=== PATIENT | male | born 1975 | race Caucasian/White ===

== ENCOUNTER 2024-03-13 11:15 | Outpatient (CLI) | payer BC ==
[2024-03-13 13:14] LABS: #Basophils 0.03 10x3/uL (0.0-0.2); %Basophils 0.3 % (0.0-1.0); %Eosinophils 1.3 % (0.0-10.0); %Lymphocytes 33.1 % (21.0-51.0); %Monocytes 8.1 % (0.0-10.0); %Neutrophils 56.8 % (42.0-75.0); Hematocrit 47.5 % (42.0-52.0); Hemoglobin 15.8 g/dL (14.0-18.0); Mean Corpuscular HGB CONC 33.3 g/dL (32.0-36.0); Mean Corpuscular Hemoglobin 31.8 pg (27.0-31.0); Mean Corpuscular Volume 95.6 fL (78.0-98.0); Mean Platelet Volume 10.1 fL (7.4-10.4); Platelet Count 252 10x3/uL (130-400); RBC Distribution Width 12.6 % (11.5-14.5); Red Blood Cell (RBC) Count 4.97 mill/uL (4.70-6.10)
[2024-03-13 13:45] LABS: Anion Gap 13 mmol/L (10-20); BUN (Urea Nitrogen) 13 mg/dL (8.9-20.6); Calc. Creatinine Clearance 0 mL/min (70-130); Calcium 8.9 mg/dL (7.8-10.44); Carbon Dioxide 21 mmol/L (22-29); Chloride 107 mmol/L (98-107); Estimated GFR 90; Glucose 85 mg/dL (70-105); Potassium 4.3 mmol/L (3.5-5.1); Sodium 137 mmol/L (136-145)
== END 2024-03-13 11:16 | disposition home or self-care (01) ==
LOC: LABBT 11:15
PROVIDERS: ATTEND Thoracic Surgery (Cardiothoracic Vascular Surgery)
DX: Z01.818 Encounter for other preprocedural examination (principal); I25.10 Atherosclerotic heart disease of native coronary artery without angina pectoris
CPT/HCPCS: 71046; 80048; 85025; 93005; 93010

== ENCOUNTER 2024-03-13 11:30 | Inpatient (IN) | payer BC ==
[2024-03-16] MEDS ORDERED: Albumin 5% 500 ML ONE (09:38)
[2024-03-16] MEDS ORDERED: Dexamethasone 4 mg/ml Vial ONE (09:38)
[2024-03-16] MEDS ORDERED: Bupivacaine PF 0.5% 30 ML VIAL ONE (09:38)
[2024-03-16] MEDS ORDERED: PHENYLEPHRINE-NS 100 MCG/ML 10 ML SYRINGE ONE (09:38)
[2024-03-16] MEDS ORDERED: EPINEPHrine 1 MG/ML VIAL ONE (09:38)
[2024-03-16] MEDS ORDERED: Heparin 10,000 UNITS/1 ML VIAL 30,000 UNITS in Sodium Chloride 0.9% 1,000 ML FS SCH (09:45)
[2024-03-16] MEDS ORDERED: Lidocaine 1% MPF 2 ML VIAL ONE (10:16)
[2024-03-16] MEDS ORDERED: CEFAZOLIN 2 GM VIAL ONE (10:17)
[2024-03-16] MEDS ORDERED: NOREPINEPHRINE 8 MG/250 ML-D5W 250 ML ONE (10:30)
[2024-03-16] MEDS ORDERED: PROPOFOL 20 ML ONE (10:46)
[2024-03-16] MEDS ORDERED: Lidocaine 2% PF 5 ML VIAL ONE (10:47)
[2024-03-16] MEDS ORDERED: Rocuronium Bromide 10 MG/ML (10ML VIAL) ONE ×3 (10:47→15:32)
[2024-03-16] MEDS ORDERED: Fentanyl 250 MCG/5 ML VIAL ONE ×2 (10:48→11:49)
[2024-03-16] MEDS ORDERED: Midazolam HCl 2 mg/2 ml Vial ONE ×3 (10:58→13:43)
[2024-03-16] MEDS ORDERED: Protamine Sulfate 250 MG/25 ML VIAL ONE (11:48)
[2024-03-16] MEDS ORDERED: Mannitol 12.5 GM/50 ML ONE (11:48)
[2024-03-16] MEDS ORDERED: Papaverine 60 MG/2 ML VIAL ONE (11:48)
[2024-03-16] MEDS ORDERED: Magnesium 5 GM/10 ML VIAL ONE (11:48)
[2024-03-16] MEDS ORDERED: Sodium Bicarb 50 mEq/50 ML VIAL ONE (11:48)
[2024-03-16] MEDS ORDERED: Aminocaproic Acid 5 GM/20 ML VIAL ONE (11:48)
[2024-03-16] MEDS ORDERED: Cardioplegic Soln 1,000 ML BAG ONE (11:48)
[2024-03-16] MEDS ORDERED: Heparin 5,000 UNITS/ML VIAL ONE (11:48)
[2024-03-16] MEDS ORDERED: Heparin 30,000 units/30 ml VIAL ONE (11:48)
[2024-03-16] MEDS ORDERED: Esmolol 100 MG/10 ML VIAL ONE (11:48)
[2024-03-16] MEDS ORDERED: Vancomycin 1 GM VIAL ONE (11:48)
[2024-03-16] MEDS ORDERED: Lidocaine 2% PF 100 mg/5 ml Syringe ONE (11:48)
[2024-03-16] MEDS ORDERED: Calcium Chloride 1 GM/10 ML Abboject SYRINGE ONE (11:48)
[2024-03-16] MEDS ORDERED: Potassium Chloride 60 mEq (30 mL) VIAL ONE (11:48)
[2024-03-16] MEDS ORDERED: Sodium Chloride 0.9% 100 ML ONE (14:22)
[2024-03-16] MEDS ORDERED: Metoprolol Tartrate 5 MG (5 mL) VIAL ONE (14:35)
[2024-03-16] MEDS ORDERED: Albumin 5% 12.5 GM (250 mL) BOT IVPB PRN ×2 (15:30)
[2024-03-16] MEDS ORDERED: traMADol HCl 50 MG TAB PO PRN (15:30)
[2024-03-16] MEDS ORDERED: hydrALAZINE 20 MG/ML VIAL SLOW IVP PRN (15:30)
[2024-03-16] MEDS ORDERED: Potassium Chloride 20 MEQ (100 mL) BAG IVPB PRN (15:30)
[2024-03-16] MEDS ORDERED: NOREPINEPHRINE 8 MG/250 ML-D5W 250 ML IVPB PRN (15:30)
[2024-03-16] MEDS ORDERED: Hetastarch 6% 500 ML 500 ML IVPB PRN (15:30)
[2024-03-16] MEDS ORDERED: fentaNYL 50 mcg/mL 1 mL Vial SLOW IVP PRN (15:30)
[2024-03-16] MEDS ORDERED: Acetaminophen 325 MG TAB PO PRN (15:30)
[2024-03-16] MEDS ORDERED: Mag-Al 1200 mg/1200 mg/30 ML UDCUP PO PRN (15:30)
[2024-03-16] MEDS ORDERED: Guaifenesin DM 100-10/5 ML UDCUP PO PRN (15:30)
[2024-03-16] MEDS ORDERED: Ipratropium/Albuterol 3 ML NEB NEB PRN (15:30)
[2024-03-16] MEDS ORDERED: Bisacodyl 5 MG TAB PO PRN (15:30)
[2024-03-16] MEDS ORDERED: Ondansetron PF 4 MG/2 ML Vial IVP PRN (15:30)
[2024-03-16] MEDS ORDERED: Bisacodyl 10 MG SUPP PR PRN (15:30)
[2024-03-16] MEDS ORDERED: fentaNYL PF 100 MCG/2 ML SYRINGE ONE (15:32)
[2024-03-16] MEDS ORDERED: Dextrose 50% Abboject 50 ML SYRINGE SLOW IVP PRN (15:45)
[2024-03-16] MEDS ORDERED: Glucagon 1 MG/ML KIT SC PRN (15:45)
[2024-03-16] MEDS ORDERED: Dextrose 5% in Water 1,000 ML IV PRN (15:45)
[2024-03-16 15:55] LABS: Actual Bicarbonate (HCO3a) 22.9 mEq/L (22-28); Base Excess (BEa) -4.5 mEq/L (-2.0 to +3.0); Carboxyhemoglobin (COHb) 1.6 gm% (0.0-3.0); Hematocrit-ABG 42 % (42.0-52.0); Hemoglobin (Hb) 14.3 g/dL (14.0-18.0); O2 Tension (PaO2), arterial 115.7 mmHg (80.0-100.0); Potassium - ABG Lab 4.31 mmol/L (3.70-5.30)
[2024-03-16] MEDS: Morphine 2 MG/ML VIAL SLOW IVP PRN (15:55)
[2024-03-16 15:57] LABS: Puncture Site Arterial Line
[2024-03-16] MEDS: Nitroglycerin 50 MG/250 ML BOT 250 ML IVPB PRN (16:00)
[2024-03-16 16:05] LABS: Hemoglobin 13.7 g/dL (14.0-18.0); Mean Corpuscular HGB CONC 33.4 g/dL (32.0-36.0); Mean Corpuscular Hemoglobin 32.8 pg (27.0-31.0); Mean Corpuscular Volume 98.1 fL (78.0-98.0); Mean Platelet Volume 9.5 fL (7.4-10.4); Platelet Count 171 10x3/uL (130-400); RBC Distribution Width 12.9 % (11.5-14.5); Red Blood Cell (RBC) Count 4.18 mill/uL (4.70-6.10)
[2024-03-16] MEDS: D5 1/2 NS w/20 mEq KCL 1,000 ML IV SCH (16:13)
[2024-03-16] MEDS: Magnesium 2 GM/50 ML(in water) 2 GM in Premix 1 BAG IVPB SCH (16:14)
[2024-03-16 16:16] LABS: Anion Gap 10 mmol/L (10-20); BUN (Urea Nitrogen) 11 mg/dL (8.9-20.6); Calc. Creatinine Clearance 182 mL/min (70-130); Calcium 8.1 mg/dL (7.8-10.44); Carbon Dioxide 21 mmol/L (22-29); Chloride 112 mmol/L (98-107); Estimated GFR 109; Glucose 134 mg/dL (70-105); Potassium 4.3 mmol/L (3.5-5.1); Sodium 139 mmol/L (136-145)
[2024-03-16 16:17] LABS: INR-International Normal Ratio 1.2; Prothrombin Time 15.5 sec (12.0-14.7)
[2024-03-16] MEDS: fentaNYL 50 mcg/mL 1 mL Vial SLOW IVP PRN (16:17)
[2024-03-16 16:18] LABS: PTT 29.4 sec (22.9-36.1)
[2024-03-16] MEDS: Insulin Regular, Human 100 UNIT/ML 10 ML VIAL SC PRN (16:19)
[2024-03-16] MEDS: Ketorolac Tromethamine 30 MG (1 mL) VIAL IVP SCH (16:20)
[2024-03-16 16:40] LABS: Band 14 % (5-11); Lymphocytes 8 % (21-51); Macrocytosis SLIGHT = 6-15 cells HPF (0-5); Monocytes 2 % (0-10); Neutrophil 75 % (42-75); Platelet Adequacy Comment Platelets Normal; Reactive Lymphocytes 1 % (0-10)
[2024-03-16] MEDS: CEFAZOLIN 2 GM in Sodium Chloride 0.9% 100 ML IVPB SCH (16:47)
[2024-03-16 18:11] LABS: Base Excess (BEa) -4.8 mEq/L (-2.0 to +3.0); CO2 Tension 36.8 mmHg (35.0-45.0); Calcium, Ionized (arterial) 1.16 mmol/L (1.12-1.30); Carboxyhemoglobin (COHb) 1.2 gm% (0.0-3.0); Hematocrit-ABG 43 % (42.0-52.0); Hemoglobin (Hb) 14.5 g/dL (14.0-18.0); Potassium - ABG Lab 4.73 mmol/L (3.70-5.30); pH, Arterial 7.354 (7.35-7.45)
[2024-03-16 18:12] LABS: Puncture Site Arterial Line
[2024-03-16] MEDS: FLU (Fluarix Triv) TS24-25(6MOS UP)/PF 45 MCG/0.5 ML Syringe IM ONE (19:33)
[2024-03-16] MEDS: Famotidine/PF 20 mg/2ml Vial SLOW IVP SCH (19:35)
[2024-03-16] MEDS: traMADol HCl 50 MG TAB PO PRN (19:36)
[2024-03-16 22:08] LABS: Hematocrit 44.4 % (42.0-52.0); Hemoglobin 14.9 g/dL (14.0-18.0)
[2024-03-16 22:18] LABS: Potassium 5.4 mmol/L (3.5-5.1)
[2024-03-17 04:11] LABS: #Basophils Less than 0.03 10x3/uL (0.0-0.2); #Eosinophils Less than 0.03 10x3/uL (0.0-0.7); %Basophils 0.1 % (0.0-1.0); %Lymphocytes 7.2 % (21.0-51.0); %Monocytes 7.8 % (0.0-10.0); %Neutrophils 84.1 % (42.0-75.0); Hematocrit 39.9 % (42.0-52.0); Hemoglobin 13.3 g/dL (14.0-18.0); Mean Corpuscular HGB CONC 33.3 g/dL (32.0-36.0); Mean Corpuscular Hemoglobin 32.1 pg (27.0-31.0); Mean Corpuscular Volume 96.4 fL (78.0-98.0); Mean Platelet Volume 10.1 fL (7.4-10.4); Platelet Count 174 10x3/uL (130-400); RBC Distribution Width 12.8 % (11.5-14.5); Red Blood Cell (RBC) Count 4.14 mill/uL (4.70-6.10)
[2024-03-17 04:32] LABS: Anion Gap 11 mmol/L (10-20); BUN (Urea Nitrogen) 12 mg/dL (8.9-20.6); Calc. Creatinine Clearance 175 mL/min (70-130); Calcium 7.9 mg/dL (7.8-10.44); Carbon Dioxide 22 mmol/L (22-29); Chloride 107 mmol/L (98-107); Estimated GFR 107; Glucose 170 mg/dL (70-105); Potassium 4.8 mmol/L (3.5-5.1); Sodium 135 mmol/L (136-145)
[2024-03-17] MEDS: HYDROcodone/Acetaminophen 7.5/325 mg Tablet PO PRN ×2 (07:20→12:51)
[2024-03-17] MEDS: Atorvastatin Calcium 40 MG TAB PO SCH (09:58)
[2024-03-17] MEDS: Pantoprazole DR 40 MG TAB PO SCH (09:58)
[2024-03-17] MEDS: Aspirin 325 MG TAB PO SCH (09:58)
[2024-03-17] MEDS: Ezetimibe 10 MG TAB PO SCH (09:58)
[2024-03-17] MEDS: Magnesium 2 GM/50 ML(in water) 2 GM in Premix 1 BAG IVPB SCH (09:59)
[2024-03-17 12:47] LABS: Actual Bicarbonate (HCO3a) 21.1 mEq/L (22-28); Analyzer IN Cardio OR; Base Excess (BEa) -4.9 mEq/L (-2.0 to +3.0); CO2 Tension 42.5 mmHg (35.0-45.0); Calcium, Ionized (arterial) 1.15 mmol/L (1.12-1.30); Hematocrit-ABG 42 % (42.0-52.0); Hemoglobin (Hb) 14.3 g/dL (14.0-18.0); O2 Tension (PaO2), arterial 535.1 mmHg (80.0-100.0); Potassium - ABG Lab 4.37 mmol/L (3.70-5.30); pH, Arterial 7.314 (7.35-7.45)
[2024-03-17 12:47] LABS: Actual Bicarbonate (HCO3a) 21.2 mEq/L (22-28); Analyzer IN Cardio OR; Base Excess (BEa) -3.9 mEq/L (-2.0 to +3.0); CO2 Tension 38.7 mmHg (35.0-45.0); Calcium, Ionized (arterial) 1.17 mmol/L (1.12-1.30); Carboxyhemoglobin (COHb) 1.2 gm% (0.0-3.0); Hematocrit-ABG 43 % (42.0-52.0); Hemoglobin (Hb) 14.6 g/dL (14.0-18.0); O2 Tension (PaO2), arterial 481.1 mmHg (80.0-100.0); Potassium - ABG Lab 4.09 mmol/L (3.70-5.30); pH, Arterial 7.356 (7.35-7.45)
[2024-03-17 12:48] LABS: Actual Bicarbonate (HCO3a) 25.9 mEq/L (22-28); Analyzer IN Cardio OR; Base Excess (BEa) -0.2 mEq/L (-2.0 to +3.0); CO2 Tension 48.4 mmHg (35.0-45.0); Calcium, Ionized (arterial) 1.03 mmol/L (1.12-1.30); Carboxyhemoglobin (COHb) 0.2 gm% (0.0-3.0); Hematocrit-ABG 32 % (42.0-52.0); O2 Tension (PaO2), arterial 300.8 mmHg (80.0-100.0); Potassium - ABG Lab 5.59 mmol/L (3.70-5.30); pH, Arterial 7.346 (7.35-7.45)
[2024-03-17 12:48] LABS: Actual Bicarbonate (HCO3a) 24.5 mEq/L (22-28); Analyzer IN Cardio OR; Base Excess (BEa) -0.9 mEq/L (-2.0 to +3.0); CO2 Tension 43.8 mmHg (35.0-45.0); Calcium, Ionized (arterial) 1.02 mmol/L (1.12-1.30); Carboxyhemoglobin (COHb) 0.3 gm% (0.0-3.0); Hematocrit-ABG 32 % (42.0-52.0); O2 Tension (PaO2), arterial 357.9 mmHg (80.0-100.0); Potassium - ABG Lab 5.38 mmol/L (3.70-5.30); pH, Arterial 7.366 (7.35-7.45)
[2024-03-17 12:48] LABS: Actual Bicarbonate (HCO3a) 21.8 mEq/L (22-28); Analyzer IN Cardio OR; Base Excess (BEa) -4.5 mEq/L (-2.0 to +3.0); CO2 Tension 45.1 mmHg (35.0-45.0); Calcium, Ionized (arterial) 1.22 mmol/L (1.12-1.30); Carboxyhemoglobin (COHb) 0.2 gm% (0.0-3.0); Hematocrit-ABG 34 % (42.0-52.0); Hemoglobin (Hb) 11.7 g/dL (14.0-18.0); O2 Tension (PaO2), arterial 418.6 mmHg (80.0-100.0); Potassium - ABG Lab 4.58 mmol/L (3.70-5.30); pH, Arterial 7.303 (7.35-7.45)
[2024-03-17 12:49] LABS: Puncture Site Arterial Line
[2024-03-17 12:49] LABS: Puncture Site Arterial Line
[2024-03-17 12:49] LABS: Puncture Site Arterial Line
[2024-03-17 12:50] LABS: Puncture Site Arterial Line
[2024-03-17 12:50] LABS: Puncture Site Arterial Line
[2024-03-17] MEDS: Metoprolol Tartrate 25 MG TAB PO SCH (19:56)
[2024-03-18] MEDS ORDERED: diphenhydrAMINE 25 MG CAP PO PRN (07:10)
[2024-03-18] MEDS ORDERED: Artificial Tear Ophth Sol 15 ML BOT EA EYE PRN (07:10)
[2024-03-18] MEDS ORDERED: Mineral Oil ENEMA PR PRN (07:10)
[2024-03-18] MEDS ORDERED: Nitroglycerin 0.4 MG TAB (25 Tab Bottle) SL PRN (07:10)
[2024-03-18] MEDS ORDERED: Guaifenesin DM 100-10/5 ML UDCUP PO PRN (07:10)
[2024-03-18] MEDS: Furosemide 40 MG TAB PO SCH ×2 (08:01→09:06)
[2024-03-18] MEDS: Potassium Chloride 10 MEQ TAB PO SCH (09:05)
[2024-03-18] MEDS ORDERED: Ipratropium/Albuterol 3 ML NEB NEB PRN (15:04)
[2024-03-19] MEDS: Potassium Chloride 10 MEQ TAB PO SCH (09:52)
[2024-03-19] MEDS: Furosemide 40 MG TAB PO SCH (09:52)
[2024-03-19] MEDS: Milk Of Magnesia 30 ML UDCUP PO PRN (12:54)
[2024-03-19 13:29] VITALS: BMI 35.8
[2024-03-20 08:57] VITALS: TEMP 98.5
[2024-03-20 09:13] VITALS: BP 117/78
== END 2024-03-20 10:25 | disposition home or self-care (01) | DRG 236 ==
LOC: SURG A 03-16 08:58 → CCU 03-16 15:39 → PCU 03-18 13:16
PROVIDERS: ADMIT Thoracic Surgery (Cardiothoracic Vascular Surgery); ATTEND Thoracic Surgery (Cardiothoracic Vascular Surgery)
PROC: 02110AW Bypass Coronary Artery, Two Arteries from Aorta with Autologous Arterial Tissue, Open Approach (ICD-10-PCS; principal; 2024-03-16)
PROC: 02100Z9 Bypass Coronary Artery, One Artery from Left Internal Mammary, Open Approach (ICD-10-PCS; 2024-03-16)
PROC: 06BP4ZZ Excision of Right Saphenous Vein, Percutaneous Endoscopic Approach (ICD-10-PCS; 2024-03-16)
PROC: 5A1221Z Performance of Cardiac Output, Continuous (ICD-10-PCS; 2024-03-16)
DX: I25.119 Atherosclerotic heart disease of native coronary artery with unspecified angina pectoris (principal); E78.5 Hyperlipidemia, unspecified; I10 Essential (primary) hypertension; E66.9 Obesity, unspecified; F17.200 Nicotine dependence, unspecified, uncomplicated; Z95.5 Presence of coronary angioplasty implant and graft; Z68.35 Body mass index [BMI] 35.0-35.9, adult
CPT/HCPCS: 36415; 36416; 36430; 71045; 80048; 82805; 85025; 85610; 85730; 86850; 86900; 86901; 93005; 93010; 93798; 94002; A4311; A4648; C1751; C1889; J0171; J0665; J1100; J1642; J1643; J1644; J1815; J1885; J2003; J2150; J2250; J2272; J2440; J2704; J2720; J3010; J3370; J3475; J3480; J3490; J7030; P9045; S0017